=== PATIENT | male | born 1985 | race Caucasian/White ===

== ENCOUNTER 2021-03-28 04:29 | Emergency (ER) | payer BC ==
[~2021-03-28] VITALS: Ht 182.9 cm; Wt 70.3 kg
[2021-03-28 05:20] LABS: ABSOLUTE NEUTROPHILS 7.5 thou/uL (1.4-8.2); BASOPHILS 0.4 % (0.0-2.0); EOSINOPHILS 8.4 % (0.0-3.0); HEMOGLOBIN 16.1 gm/dL (14.0-18.0); LYMPHOCYTES 35.3 % (24.0-44.0); MCH 31.8 pg (26.0-34.0); MCHC 32.9 g/dL (28.0-37.0); MCV 96.8 fL (80.0-100.0); PLATELET COUNT 302 thou/uL (150-400); POLYS 48.9 % (36.0-66.0); RBC 5.06 mil/uL (4.50-6.00); RDW 12.6 % (10.5-14.5); WBC 15.3 thou/uL (4.0-11.0)
[2021-03-28 05:34] LABS: CALCIUM 9.4 mg/dL (8.5-10.1); CREATININE 1.3 mg/dL (0.7-1.3); POTASSIUM 3.6 mmol/L (3.5-5.1)
--- NOTE | 2021-03-28 07:42 | EKG ---
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1985 Requested By: Chris Galvan Order Number: [id number] MD: Joby Bangura Measurements Intervals [place] Rate: 97 P: 72 CA: 189 QRS: 25 QRSD: 111 T: 45 QT: 348 QTc: 442 Interpretive Statements Sinus rhythm Probable left atrial enlargement RSR' in V1 or V2, right VCD or RVH Left ventricular hypertrophy Baseline wander in lead(s) V2 No previous ECG available for comparison Electronically Signed On 03-28-2021 7:42:02 [employer] by Joby Bangura [email or web address] <ELECTRONICALLY SIGNED> By: Joby Bangura MD, [facility] 03/28/21 0742 1 0442 Joby Bangura MD, FACC /EPI
[2021-03-28 16:55] VITALS: BP 133/70
--- NOTE | 2021-03-31 15:07 | PATH ---
[facility] [address] [address] PATHOLOGY RPT PROCEDURE Name: LAM LEVINE Room #: DEP ANDRÉS Brennan#: [id number] Admission: 03/28/21 Date of : 87 Discharge: 03/28/21 Report #: [id number] Path Case #: [id number] [facility] Accession Number: [id number] . 01 Material submitted: . PART A: esophagus - ESOPHAGUS BIOPSY DISTAL- R/O EOSINOPHILIC ESOPHAGITIS. Modifiers: distal PART B: esophagus - ESOPHAGEAL BIOPSY MID- R/O EOSINOPHILIC ESOPHAGITIS. Modifiers: mid . 01 Clinical history: . EGD FOOD BOLUS STRICTURE ESOPHAGUS . 02 Diagnosis: A. Distal esophagus, biopsy: - Squamous and glandular mucosa with mild increase in intraepithelial eosinophils and acute inflammation. - Negative for malignancy. . B. Mid esophagus, biopsy: - Squamous mucosa with mild increase in intraepithelial eosinophils. - Negative for atypia or malignancy. (ANK:mega; 03/30/2021) QMS 03/30/2021 1127 Local . 02 Comment: Both the mid esophagus and distal esophagus show an increased amount of intraepithelial eosinophils. In the right clinical setting, these are suggestive of eosinophilic esophagitis. Recommend clinical correlation. (ANK:mega; 03/30/2021) . 02 Electronically signed: . Katelin Lopez MD, Pathologist NPI- [id number] . 01 Gross description: . A. The specimen is received in formalin, labeled "Lam Levine, distal esophagus biopsy, R/O eosinophilic esophagitis". The specimen is additionally labeled on the requisition as, "esophagus biopsy (distal)". Received is a segment of pale ornelas tissue measuring 0.4 cm in maximum dimensions. The specimen is submitted entirely in cassette A1. . B. The specimen is received in formalin, labeled "Lam Levine, esophageal biopsy, R/O eosinophilic esophagitis". The specimen is additionally labeled on the requisition as, "esophageal biopsy (mid)". [address] [address] PATHOLOGY RPT PROCEDURE Name: LAM LEVINE Room #: DEP ANDRÉS Brennan#: [id number] Admission: 03/28/21 Date of : 87 Discharge: 03/28/21 Report #: [id number] Path Case #: [id number] Received are several fragments of pale ornelas, transparent tissue measuring 0.4 x 0.4 x 0.1 cm in aggregate dimensions. The specimen is filtered and entirely submitted in cassette B1. (CAA; 03/29/2021) QAC/QAC 03/29/2021 0859 Local . 02 Pathologist provided ICD-10: K20.90 . 02 CPT . 949901, 938941 Specimen Comment: A courtesy copy of this report has been sent to [phone] Specimen Comment: [id number] Specimen Comment: Report sent to / DR WARREN Specimen Comment: A duplicate report has been generated due to demographic updates. Performed at: [address], [place] [id number] MD Mak Ny MD Phone: [phone] Performed at: [address] [id number] MD Katelin Lopez MD Phone: [phone]
== END 2021-03-28 16:55 | disposition home or self-care (01) ==
LOC: ER 04:29
PROVIDERS: Student in an Organized Health Care Education/Training Program
DX: T17.228A Food in pharynx causing other injury, initial encounter (principal); Z20.822 Contact with and (suspected) exposure to COVID-19; R09.89 Other specified symptoms and signs involving the circulatory and respiratory systems; R56.9 Unspecified convulsions; X58.XXXA Exposure to other specified factors, initial encounter; Y93.89 Activity, other specified; Y92.89 Other specified places as the place of occurrence of the external cause; Y99.8 Other external cause status
CPT/HCPCS: 62110; 62900; 70005